=== PATIENT | male | born 1985 | race Two or more races ===

== ENCOUNTER 2019-10-25 09:57 | Inpatient (IN) | payer OTHER ==
[~2019-10-25 09:57] MED LIST: TRUVADA 200 MG1 EAC1 ORAL
[2019-10-28] MEDS ORDERED: LEVAQUIN750 MG ORAL (13:46)
[2019-10-28] MEDS ORDERED: METRONIDAZOLE500 MG ORAL ×2 (13:56→13:57)
== END 2019-10-28 13:34 | disposition home or self-care (01) | DRG 395 ==
LOC: 3E 09:57 → UNDOADMIN 11-19 14:01 → 3E 11-19 14:01 → UNDODISIN 11-19 14:24
DX: K35.80 Unspecified acute appendicitis (principal); Z98.890 Other specified postprocedural states; E86.0 Dehydration; R00.1 Bradycardia, unspecified; Z87.891 Personal history of nicotine dependence
CPT/HCPCS: 36415; 74178; 80053; 82150; 83690; 83735; 84100; 85025; 85651; 86140; 87040; 87081